=== PATIENT | female | born 1960 | race Caucasian/White ===

== ENCOUNTER 2019-11-13 10:22 | Emergency (ER) | payer BC ==
[~2019-11-13] VITALS: Ht 157.5 cm; Wt 118.8 kg
[~2019-11-13 10:22] MED LIST: COU4T PO; FURO40TA4 PO; LISI10TA4 PO; METF500T20 PO; WARF5TAB PO
[2019-11-13 10:24] VITALS: BP 156/91
== END 2019-11-13 13:06 | disposition home or self-care (01) ==
LOC: ER 10:22
DX: J06.9 Acute upper respiratory infection, unspecified (principal); Z88.0 Allergy status to penicillin; Z88.8 Allergy status to other drugs, medicaments and biological substances; Z79.899 Other long term (current) drug therapy; Z79.01 Long term (current) use of anticoagulants
CPT/HCPCS: 71045; 93005; 99283

== ENCOUNTER 2021-12-09 13:01 | Emergency (ER) | payer BC ==
[~2021-12-09] VITALS: Ht 162.6 cm; Wt 119.3 kg
[~2021-12-09 13:01] MED LIST changes: +LISI10TA27 PO; -LISI10TA4 PO; +METF-900 PO; -METF500T20 PO; -WARF5TAB PO; +WARF5TAB2 PO
[2021-12-09 13:41] LABS: BASOPHILS # (AUTO) 0.1 X10'3 (0-0.2); BASOPHILS % (AUTO) 0.9 % (0-1); EOSINOPHILS # (AUTO) 0.2 X10'3 (0-0.9); EOSINOPHILS % (AUTO) 1.5 % (0-6); HEMATOCRIT 40.5 % (35.0-45.0); HEMOGLOBIN 13.3 g/dl (12.0-16.0); LYMPHOCYTES # (AUTO) 2.1 X10'3 (1.1-4.8); MEAN CORPUSCULAR HEMOGLOBIN 30.1 PG (27.0-31.0); MEAN CORPUSCULAR HGB CONC 32.8 g/dL (33.0-36.5); MEAN CORPUSCULAR VOLUME 91.7 FL (78-98); MEAN PLATELET VOLUME 8.8 FL (7.4-10.4); MONOCYTES # (AUTO) 0.8 X10'3 (0-0.9); MONOCYTES % (AUTO) 7.3 % (2-12); NEUTROPHILS # (AUTO) 8.4 X10'3 (1.8-7.7); NEUTROPHILS % (AUTO) 72.3 % (42-75); PLATELET COUNT 271 X10'3 (140-440); RED BLOOD COUNT 4.42 X10'6 (4.20-5.60); RED CELL DISTRIBUTION WIDTH 14.5 % (11.5-14.5); WHITE BLOOD COUNT 11.6 X10'3 (4.5-11.0)
[2021-12-09 13:52] LABS: ALANINE AMINOTRANSFERASE 38 U/L (12-78); ALBUMIN 3.6 G/DL (3.4-5.0); ALKALINE PHOSPHATASE 99 IU/L (46-116); ANION GAP 11 (8-16); ASPARTATE AMINO TRANSFERASE 28 U/L (10-37); BILIRUBIN,TOTAL 0.4 MG/DL (0.1-1.0); BLOOD UREA NITROGEN 22 MG/DL (7-18); BUN/CREATININE RATIO 29.7 (6.6-38.0); CALCIUM 9.2 MG/DL (8.5-10.1); CHLORIDE 100 MMOL/L (99-107); CREATININE 0.74 MG/DL (0.40-0.90); GLUCOSE 120 MG/DL (70-104); POTASSIUM 3.2 MMOL/L (3.5-5.1); SODIUM 139 MMOL/L (135-145); TOTAL CARBON DIOXIDE 28.5 MMOL/L (24-32); TOTAL PROTEIN 7.3 G/DL (6.4-8.2); eGFR 79 ML/MIN
[2021-12-09 23:22] VITALS: BP 129/64
[2021-12-10] MEDS ORDERED: aspirin 325mg tablet PO ONE (00:05)
--- NOTE | 2021-12-10 00:19 | NUR ---
CONSULTED WITH SAKSHI AT AND HAD HER SIGN THE AMA FORM. PT DENIES PAIN. SEE MAR - PT LEFT PWD HERR AOX4 ON FOOT
== END 2021-12-10 00:21 | disposition left against medical advice (07) ==
LOC: ER 13:02
DX: R07.89 Other chest pain (principal); Z20.822 Contact with and (suspected) exposure to COVID-19; R60.0 Localized edema; Z88.0 Allergy status to penicillin; Z79.899 Other long term (current) drug therapy
CPT/HCPCS: 36415; 71045; 80053; 83880; 84484; 85025; 87635; 93005; 93971; 99285; C9803

== ENCOUNTER 2023-04-26 10:32 | Emergency (ER) | payer BC ==
[~2023-04-26] VITALS: Ht 157.5 cm; Wt 142.0 kg
[2023-04-26 11:43] LABS: BASOPHILS # (AUTO) 0.1 X10'3 (0-0.2); BASOPHILS % (AUTO) 1.2 % (0-1); EOSINOPHILS # (AUTO) 0.3 X10'3 (0-0.9); HEMATOCRIT 38.6 % (35.0-45.0); HEMOGLOBIN 12.5 g/dl (12.0-16.0); LYMPHOCYTES # (AUTO) 1.6 X10'3 (1.1-4.8); LYMPHOCYTES % (AUTO) 19.6 % (21-51); MEAN CORPUSCULAR HEMOGLOBIN 30.5 PG (27.0-31.0); MEAN CORPUSCULAR HGB CONC 32.5 g/dL (33.0-36.5); MEAN CORPUSCULAR VOLUME 93.9 FL (78-98); MEAN PLATELET VOLUME 9.5 FL (7.4-10.4); MONOCYTES # (AUTO) 0.7 X10'3 (0-0.9); MONOCYTES % (AUTO) 9.4 % (2-12); NEUTROPHILS # (AUTO) 5.2 X10'3 (1.8-7.7); NEUTROPHILS % (AUTO) 65.8 % (42-75); PLATELET COUNT 189 X10'3 (140-440); RED BLOOD COUNT 4.11 X10'6 (4.20-5.60); RED CELL DISTRIBUTION WIDTH 14.7 % (11.5-14.5); WHITE BLOOD COUNT 7.9 X10'3 (4.5-11.0)
--- NOTE | 2023-04-26 11:49 | NUR ---
PT TAKEN TO XRAY
[2023-04-26 11:50] LABS: ALANINE AMINOTRANSFERASE 38 U/L (12-78); ALBUMIN 3.1 G/DL (3.4-5.0); ALKALINE PHOSPHATASE 68 IU/L (46-116); ANION GAP 6 (8-16); ASPARTATE AMINO TRANSFERASE 29 U/L (10-37); BILIRUBIN,TOTAL 0.4 MG/DL (0.1-1.0); BLOOD UREA NITROGEN 22 MG/DL (7-18); BUN/CREATININE RATIO 34.4 (10.0-20.0); CHLORIDE 107 MMOL/L (99-107); CREATININE 0.64 MG/DL (0.40-0.90); GLUCOSE 96 MG/DL (70-104); POTASSIUM 4.3 MMOL/L (3.5-5.1); SODIUM 140 MMOL/L (135-145); TOTAL CARBON DIOXIDE 27.2 MMOL/L (24-32); TOTAL PROTEIN 6.1 G/DL (6.4-8.2); eGFR > 90 ML/MIN
[2023-04-26] MEDS ORDERED: HYDR-3965 PO ×2 (13:56→14:20)
--- NOTE | 2023-04-26 14:28 | NUR ---
PT STATED THAT [facility] IS CLOSED ON SUN AND WILL BE CLOSED ON THU D/ HOLIDAY. PT REQ PRINTED RX. PRINTED RX PROVIDED AND RN CALLED [facility] TO [facility] RX THAT WAS SENT ELECTRONICALLY.
[2023-04-26 14:39] VITALS: BP 138/75
== END 2023-04-26 15:40 | disposition home or self-care (01) ==
LOC: ER 10:33
DX: M25.552 Pain in left hip (principal); Z88.0 Allergy status to penicillin; Z88.8 Allergy status to other drugs, medicaments and biological substances; Z79.899 Other long term (current) drug therapy
CPT/HCPCS: 36415; 72192; 73502; 80053; 85025; 99284

== ENCOUNTER 2023-06-10 07:15 | Emergency (ER) | payer MEDICARE, BC ==
[~2023-06-10] VITALS: Ht 157.5 cm; Wt 140.0 kg
[2023-06-10 07:20] VITALS: BP 150/66
[2023-06-10] MEDS ORDERED: ketorolac trometh inj. 60 MG/2 ML VIAL IM ONE (10:10)
[2023-06-10] MEDS ORDERED: cyclobenzaprine 10mg tablet PO ONE (10:10)
[2023-06-10] MEDS ORDERED: LISI5TAB22 PO (20:43)
[2023-06-10] MEDS ORDERED: SOTA80TA73 PO (20:43)
[2023-06-10] MEDS ORDERED: APIX5TAB3 PO (20:43)
[2023-06-11] MEDS ORDERED: POTA-366 PO (01:03)
[2023-06-11] MEDS ORDERED: OMEP20CA16 PO (01:13)
[2023-06-11] MEDS ORDERED: CHOL500050 PO (01:13)
[2023-06-11] MEDS ORDERED: LACT1TAB11 PO (01:13)
[2023-06-11] MEDS ORDERED: METF-436 PO (01:13)
[2023-06-11] MEDS ORDERED: MULT-1085 PO (01:13)
[2023-06-11] MEDS ORDERED: SENN8.6T19 PO (01:13)
[2023-06-11] MEDS ORDERED: CALC-331 PO (01:13)
[2023-06-11] MEDS ORDERED: ATOR20TA66 PO (01:17)
== END 2023-06-10 11:01 | disposition home or self-care (01) ==
LOC: ER 07:15
DX: M25.552 Pain in left hip (principal); Z88.8 Allergy status to other drugs, medicaments and biological substances; Z88.0 Allergy status to penicillin
CPT/HCPCS: 73502; 96372; 99283; J1885

== ENCOUNTER 2023-06-10 17:49 | Inpatient (IN) | payer BC, MEDICARE ==
[~2023-06-10] VITALS: Ht 157.5 cm; Wt 118.2 kg
[2023-06-10] MEDS ORDERED: oxyCODONE/APAP 10/325mg tablet PO ONE (18:20)
[2023-06-10] MEDS ORDERED: ibuprofen tablet 400 MG TABLET PO ONE (18:30)
[2023-06-10] MEDS ORDERED: ondansetron/PF 4mg/2ml inj IV ONE (19:35)
[2023-06-10] MEDS ORDERED: morphine 4 MG/ML inj SYRINge IV ONE (19:42)
[2023-06-10 19:55] LABS: BASOPHILS # (AUTO) 0.1 X10'3 (0-0.2); BASOPHILS % (AUTO) 0.7 % (0-1); EOSINOPHILS # (AUTO) 0.2 X10'3 (0-0.9); EOSINOPHILS % (AUTO) 1.3 % (0-6); HEMATOCRIT 39.1 % (35.0-45.0); HEMOGLOBIN 12.7 g/dl (12.0-16.0); LYMPHOCYTES # (AUTO) 1.7 X10'3 (1.1-4.8); LYMPHOCYTES % (AUTO) 12.4 % (21-51); MEAN CORPUSCULAR HEMOGLOBIN 30.7 PG (27.0-31.0); MEAN CORPUSCULAR HGB CONC 32.5 g/dL (33.0-36.5); MEAN CORPUSCULAR VOLUME 94.7 FL (78-98); MEAN PLATELET VOLUME 9.1 FL (7.4-10.4); MONOCYTES # (AUTO) 1.2 X10'3 (0-0.9); NEUTROPHILS # (AUTO) 10.5 X10'3 (1.8-7.7); NEUTROPHILS % (AUTO) 76.6 % (42-75); PLATELET COUNT 203 X10'3 (140-440); RED BLOOD COUNT 4.13 X10'6 (4.20-5.60); RED CELL DISTRIBUTION WIDTH 14.6 % (11.5-14.5); WHITE BLOOD COUNT 13.6 X10'3 (4.5-11.0)
[2023-06-10 20:07] LABS: APTT 29 SECONDS (22-32)
[2023-06-10 20:09] LABS: ALANINE AMINOTRANSFERASE 31 U/L (12-78); ALBUMIN 3.5 G/DL (3.4-5.0); ALKALINE PHOSPHATASE 87 IU/L (46-116); ANION GAP 11 (8-16); ASPARTATE AMINO TRANSFERASE 24 U/L (10-37); BILIRUBIN,TOTAL 0.3 MG/DL (0.1-1.0); BLOOD UREA NITROGEN 33 MG/DL (7-18); BUN/CREATININE RATIO 35.9 (10.0-20.0); CALCIUM 9.4 MG/DL (8.5-10.1); CHLORIDE 102 MMOL/L (99-107); CREATININE 0.92 MG/DL (0.40-0.90); GLUCOSE 105 MG/DL (70-104); MAGNESIUM 2.2 MG/DL (1.5-2.4); POTASSIUM 3.7 MMOL/L (3.5-5.1); SODIUM 137 MMOL/L (135-145); TOTAL CARBON DIOXIDE 24.5 MMOL/L (24-32); TOTAL PROTEIN 6.9 G/DL (6.4-8.2); eGFR 61 ML/MIN
[2023-06-10] MEDS ORDERED: APIX5TAB3 PO (20:43)
[2023-06-10] MEDS ORDERED: LISI5TAB22 PO (20:43)
[2023-06-10] MEDS ORDERED: SOTA80TA73 PO (20:43)
[2023-06-10] MEDS ORDERED: normal saline 1000ml 1,000 ML IV SCH (20:55)
[2023-06-10 21:44] LABS: CLARITY,URINE SLIGHTLY CLOUDY (Clear); COLOR,URINE YELLOW (Yellow); GLUCOSE, URINE NEGATIVE (Neg); KETONES,URINE NEGATIVE (Neg); LEUKOCYTE ESTERASE ,URINE NEGATIVE (Neg); NITRITES, URINE NEGATIVE (Neg); OCCULT BLOOD,URINE NEGATIVE (Neg); PROTEIN,URINE NEGATIVE (Neg); UA COLLECTION TYPE FOLEY CATH; UROBILINOGEN,URINE 0.2 E.U/dL (0.2-1.0)
[2023-06-10 21:51] LABS: FINE GRANULAR CAST 0-3 /LPF (NEGATIVE); HYALINE CASTS >30 /LPF (NEGATIVE); MUCUS STRANDS MODERATE /LPF (Neg); SQUAMOUS EPITHELIAL CELL,UR MANY /LPF (FEW)
[2023-06-10 21:52] LABS: BACTERIA,URINE FEW /HPF (Neg); TRANSITIONAL EPI CELLS,URINE FEW /HPF; WBC,URINE 0-4 /HPF (0-4)
[2023-06-10] MEDS ORDERED: morphine 2 MG/ML inj. syringe IV PRN ×2 (21:55)
[2023-06-10] MEDS ORDERED: potassium Cl 20 mEq SR tablet PO PRN ×2 (21:55)
[2023-06-10] MEDS ORDERED: mag hydrox/Alum hydrox/simeth 30ml oral suspension PO PRN (21:55)
[2023-06-10] MEDS ORDERED: potassium Cl 40MEQ/1/2NS 520ml 520 ML IV PRN (21:55)
[2023-06-10] MEDS ORDERED: acetaminophen 325mg tablet PO PRN (21:55)
[2023-06-10] MEDS ORDERED: magnesium 4gm in 100ml NS 100 ML IV PRN (21:55)
[2023-06-10] MEDS ORDERED: magnesium hydroxide 30ml (MOM) UD suspension PO PRN (21:55)
[2023-06-10] MEDS ORDERED: magnesium Cl slow-release 64mg tablet PO PRN (21:55)
[2023-06-10] MEDS ORDERED: heparin, porcine 5000 units/ml vial SQ ONE (21:55)
[2023-06-10] MEDS ORDERED: magnesium 2GM in 50ml NS 50 ML IV PRN (21:55)
[2023-06-10] MEDS ORDERED: ondansetron/PF 4mg/2ml inj IV PRN (21:55)
[2023-06-10] MEDS: normal saline 1000ml 1,000 ML IV SCH (22:14)
[2023-06-10] MEDS ORDERED: sotalol 80mg tablet PO SCH (22:30)
[2023-06-11] VITALS (15 sets, daily range): BP systolic 103–161; BP diastolic 43–88
[2023-06-11] MEDS ORDERED: morphine 2 MG/ML inj. syringe IV PRN ×3 (00:50→12:50)
[2023-06-11] MEDS: morphine 2 MG/ML inj. syringe IV PRN ×4 (01:00→08:18)
[2023-06-11] MEDS ORDERED: POTA-366 PO (01:03)
[2023-06-11] MEDS ORDERED: MULT-1085 PO (01:13)
[2023-06-11] MEDS ORDERED: SENN8.6T19 PO (01:13)
[2023-06-11] MEDS ORDERED: CHOL500050 PO (01:13)
[2023-06-11] MEDS ORDERED: OMEP20CA16 PO (01:13)
[2023-06-11] MEDS ORDERED: LACT1TAB11 PO (01:13)
[2023-06-11] MEDS ORDERED: CALC-331 PO (01:13)
[2023-06-11] MEDS ORDERED: METF-436 PO (01:13)
[2023-06-11] MEDS ORDERED: ATOR20TA66 PO (01:17)
[2023-06-11 01:49] LABS: BASOPHILS # (AUTO) 0.1 X10'3 (0-0.2); BASOPHILS % (AUTO) 0.7 % (0-1); EOSINOPHILS # (AUTO) 0.2 X10'3 (0-0.9); EOSINOPHILS % (AUTO) 1.9 % (0-6); HEMATOCRIT 35.7 % (35.0-45.0); HEMOGLOBIN 11.7 g/dl (12.0-16.0); LYMPHOCYTES # (AUTO) 2.2 X10'3 (1.1-4.8); LYMPHOCYTES % (AUTO) 20.6 % (21-51); MEAN CORPUSCULAR HEMOGLOBIN 30.9 PG (27.0-31.0); MEAN CORPUSCULAR HGB CONC 32.9 g/dL (33.0-36.5); MEAN CORPUSCULAR VOLUME 94.1 FL (78-98); MEAN PLATELET VOLUME 8.9 FL (7.4-10.4); MONOCYTES % (AUTO) 9.4 % (2-12); NEUTROPHILS # (AUTO) 7.2 X10'3 (1.8-7.7); NEUTROPHILS % (AUTO) 67.4 % (42-75); PLATELET COUNT 177 X10'3 (140-440); RED BLOOD COUNT 3.79 X10'6 (4.20-5.60); RED CELL DISTRIBUTION WIDTH 14.5 % (11.5-14.5); WHITE BLOOD COUNT 10.8 X10'3 (4.5-11.0)
[2023-06-11 02:00] LABS: ALANINE AMINOTRANSFERASE 32 U/L (12-78); ALBUMIN 3.1 G/DL (3.4-5.0); ALKALINE PHOSPHATASE 70 IU/L (46-116); ANION GAP 9 (8-16); ASPARTATE AMINO TRANSFERASE 20 U/L (10-37); BILIRUBIN,TOTAL 0.4 MG/DL (0.1-1.0); BLOOD UREA NITROGEN 27 MG/DL (7-18); CALCIUM 8.8 MG/DL (8.5-10.1); CHLORIDE 105 MMOL/L (99-107); CREATININE 0.75 MG/DL (0.40-0.90); GLUCOSE 98 MG/DL (70-104); MAGNESIUM 2.2 MG/DL (1.5-2.4); POTASSIUM 3.7 MMOL/L (3.5-5.1); SODIUM 139 MMOL/L (135-145); TOTAL CARBON DIOXIDE 24.9 MMOL/L (24-32); TOTAL PROTEIN 6.1 G/DL (6.4-8.2); eGFR 78 ML/MIN
[2023-06-11] MEDS: pantoprazole 40mg Tablet.DR PO SCH (07:30)
[2023-06-11] MEDS: K and/or MAG REPLACEMENT MC SCH ×2 (08:00→19:36)
[2023-06-11] MEDS: docusate sod 100mg capsule PO SCH ×2 (08:00→20:03)
[2023-06-11] MEDS: sotalol HCl 40mg (1/2 tablet) PO SCH ×2 (08:00→21:22)
--- NOTE | 2023-06-11 09:09 | NUR ---
RN PAGED DR CHAVEZ TO NOTIFY THAT MORPHINE 2MG NOT EFFECTIVE AND TO REQ DIALUDID.
--- NOTE | 2023-06-11 09:59 | NUR ---
RN CALLED OR AND SPOKE WITH BRE MIRAMONTES CASING SEWER AND NOTIFIED HER THAT PT TOOK ELIQUIS YESTERDAY AND HEPARIN WAS ADMIN 06/10 AT 2235. PER BRE ORD COAG LABS UNDER MILES. ORD PLACED.
--- NOTE | 2023-06-11 10:27 | NUR ---
RN PAGED DR CHAVEZ TO CALL ED BACK SO STRONGER PAIN MED/MORE PAIN MED MAY BE ORD. PT STATES THAT PAIN TO LEFT HIP IS STILL 10/10 AFTER 2 MG MORPHINE.
--- NOTE | 2023-06-11 10:42 | NUR ---
DR CHAVEZ RTN RN CALL AND ORD TO CHG MORPHINE FROM 2MG TO 3MG Q 4 HRS AND RN MAY ADMIN ADDITIONAL 1MG OF MORPHINE NOW. Addendum: 06/11/23 at 1044 by RUSLAN CORRECTION TO PREVIOUS NOTE. PER DR CHAVEZ CHG 2MG MORPHINE Q 4HRS TO Q 2HRS.
[2023-06-11 10:45] LABS: BASOPHILS % (AUTO) 0.5 % (0-1); EOSINOPHILS # (AUTO) 0.2 X10'3 (0-0.9); EOSINOPHILS % (AUTO) 2.3 % (0-6); HEMATOCRIT 36.7 % (35.0-45.0); LYMPHOCYTES # (AUTO) 1.5 X10'3 (1.1-4.8); MEAN CORPUSCULAR HGB CONC 32.6 g/dL (33.0-36.5); MEAN CORPUSCULAR VOLUME 95.1 FL (78-98); MEAN PLATELET VOLUME 9.2 FL (7.4-10.4); MONOCYTES % (AUTO) 10.8 % (2-12); NEUTROPHILS # (AUTO) 6.7 X10'3 (1.8-7.7); NEUTROPHILS % (AUTO) 70.4 % (42-75); PLATELET COUNT 175 X10'3 (140-440); RED BLOOD COUNT 3.86 X10'6 (4.20-5.60); RED CELL DISTRIBUTION WIDTH 15.1 % (11.5-14.5); WHITE BLOOD COUNT 9.5 X10'3 (4.5-11.0)
--- NOTE | 2023-06-11 11:10 | NUR ---
PT/PTT/INR COLLECTED BY LAB AND SENT RIGHT AWAY FOR PT SURGERY.
[2023-06-11 11:42] LABS: APTT 28 SECONDS (22-32)
--- NOTE | 2023-06-11 12:33 | NUR ---
PT TAKEN TO OR. PT BELONGINGS SENT WITH HER.
[2023-06-11] MEDS ORDERED: proCHLORperazine 10 MG/2 ml inj IV PRN (12:50)
[2023-06-11] MEDS ORDERED: meperidine/PF 25mg/ml syringe IV PRN ×2 (12:50)
[2023-06-11] MEDS ORDERED: morphine 4 MG/ML inj SYRINge IV PRN (12:50)
[2023-06-11] MEDS ORDERED: ondansetron/PF 4mg/2ml inj IV PRN (12:50)
[2023-06-11] MEDS ORDERED: ringers solution, lacted 1,000 ML IV SCH (12:50)
[2023-06-11] MEDS ORDERED: sevoflurane 250ml liquid IH ONE (12:54)
[2023-06-11] MEDS ORDERED: fentaNYL/PF 50MCG/1 ML 2ML syringe ONE (13:03)
[2023-06-11] MEDS ORDERED: midazolam 1 mg/ML 2ml injection ONE (13:03)
[2023-06-11] MEDS ORDERED: ceFAZolin 1000mg inj ONE ×3 (13:15)
[2023-06-11] MEDS ORDERED: propofol inj 20 ML IV ONE (13:16)
[2023-06-11] MEDS ORDERED: ROPIVAcaine 0.5% (5mg/ml) 30ml vial ONE (13:33)
--- NOTE | 2023-06-11 13:46 | NUR ---
Received from OR via HOSPITAL BED TO RR 8, accompanied by Anesthesiologist DR FORTE and report given by Anesthesiolgist. PT PRESENTS WITH PIV 20G LEFT HAND, SPO2 98 10L MASK W/ ORAL AIRWAY, LEFT HIP DRESSING CDI,;R RUNNING AT 100MLS/HR, VSS. Addendum: 06/11/23 at 1400 by Danielle Schmidt RN, RN Amended: Links added.
--- NOTE | 2023-06-11 13:50 | NUR ---
ORAL AIRWAY REMOVED, PT TOLERATED WELL. Addendum: 06/11/23 at 1403 by Danielle Schmidt RN RN Amended: Links added.
[2023-06-11] MEDS: meperidine/PF 25mg/ml syringe IV PRN ×2 (14:16→14:51)
[2023-06-11] MEDS: normal saline 1000ml 1,000 ML IV SCH (14:35)
--- NOTE | 2023-06-11 15:06 | NUR ---
Report called to receiving nurse KALEIGH MIRAMONTES. Transferred via HOSPITAL BED TO ROOM 4013B. BED IN LOW LOCKED POSITION WITH CALL LIGHT IN REACH, PT HOOKED UP TO BEDSIDE MONITOR. CHART TAKEN TO NURSES STATION. Belongings TAKEN TO ROOM WITH PT. Special Issues communicated to receiving nurse. Addendum: 06/11/23 at 1515 by Danielle Schmidt RN, RN Amended: Links added.
--- NOTE | 2023-06-11 15:22 | NUR ---
Received report from Rylee in recovery for pt. Assuming care of pt. Called Dr Santos and he said pt doesn't need tranexamic for postop since EBL is 10.
[2023-06-11] MEDS ORDERED: ceFAZolin/D5W- 1GM premix 50 ML IV SCH (16:00)
[2023-06-11] MEDS: HYDROcodone/acetaminophen 10/325mg tab PO PRN ×3 (17:35→21:44)
--- NOTE | 2023-06-11 18:30 | NUR ---
Patient in room ORTHO 4013. I have received report from FE Corbett and had the opportunity to ask questions and assume patient care.
--- NOTE | 2023-06-11 18:30 | NUR ---
Patient in room ORTHO 4013. I have received report from FE Corbett and had the opportunity to ask questions and assume patient care.
--- NOTE | 2023-06-11 18:41 | NUR ---
Problems reprioritized. Patient report given, questions answered & plan of care reviewed with Bety MIRAMONTES.
[2023-06-11] MEDS: ceFAZolin inj. 3,000 MG in normal saline 100ml IV soln 100 ML IV SCH (20:02)
[2023-06-11] MEDS: enoxaparin 60mg/0.6ml syringe SUBCUT SCH (21:07)
[2023-06-12 01:46] VITALS: BP 115/53
[2023-06-12] MEDS: ceFAZolin inj. 3,000 MG in normal saline 100ml IV soln 100 ML IV SCH (02:45)
[2023-06-12] MEDS: HYDROcodone/acetaminophen 10/325mg tab PO PRN ×5 (02:59→20:16)
[2023-06-12 06:00] VITALS: BP 112/59
--- NOTE | 2023-06-12 06:25 | NUR ---
Problems reprioritized. Patient report given, questions answered & plan of care reviewed with FE Le.
--- NOTE | 2023-06-12 06:31 | NUR ---
Patient in room ORTHO 4013. I have received report from Linda & Bety and had the opportunity to ask questions and assume patient care.
[2023-06-12] MEDS: K and/or MAG REPLACEMENT MC SCH ×2 (06:36→19:50)
[2023-06-12] MEDS: sotalol HCl 40mg (1/2 tablet) PO SCH ×3 (07:02→20:14)
[2023-06-12] MEDS: pantoprazole 40mg Tablet.DR PO SCH (07:02)
[2023-06-12] MEDS: docusate sod 100mg capsule PO SCH ×2 (07:02→20:14)
[2023-06-12] MEDS: normal saline 1000ml 1,000 ML IV SCH (07:15)
[2023-06-12 07:37] LABS: BASOPHILS # (AUTO) 0.1 X10'3 (0-0.2); BASOPHILS % (AUTO) 0.6 % (0-1); EOSINOPHILS # (AUTO) 0.2 X10'3 (0-0.9); EOSINOPHILS % (AUTO) 2.1 % (0-6); HEMATOCRIT 33.8 % (35.0-45.0); HEMOGLOBIN 11.3 g/dl (12.0-16.0); LYMPHOCYTES # (AUTO) 1.5 X10'3 (1.1-4.8); LYMPHOCYTES % (AUTO) 16.6 % (21-51); MEAN CORPUSCULAR HEMOGLOBIN 31.9 PG (27.0-31.0); MEAN CORPUSCULAR HGB CONC 33.4 g/dL (33.0-36.5); MEAN CORPUSCULAR VOLUME 95.4 FL (78-98); MEAN PLATELET VOLUME 9.5 FL (7.4-10.4); MONOCYTES % (AUTO) 11.3 % (2-12); NEUTROPHILS # (AUTO) 6.3 X10'3 (1.8-7.7); NEUTROPHILS % (AUTO) 69.4 % (42-75); PLATELET COUNT 159 X10'3 (140-440); RED BLOOD COUNT 3.54 X10'6 (4.20-5.60); RED CELL DISTRIBUTION WIDTH 14.6 % (11.5-14.5); WHITE BLOOD COUNT 9.1 X10'3 (4.5-11.0)
[2023-06-12 07:52] LABS: ALANINE AMINOTRANSFERASE 21 U/L (12-78); ALBUMIN 2.6 G/DL (3.4-5.0); ALBUMIN/GLOBULIN RATIO 0.8 (1.1-1.5); ALKALINE PHOSPHATASE 67 IU/L (46-116); ANION GAP 8 (8-16); ASPARTATE AMINO TRANSFERASE 19 U/L (10-37); BILIRUBIN,TOTAL 0.2 MG/DL (0.1-1.0); BLOOD UREA NITROGEN 15 MG/DL (7-18); CALCIUM 8.1 MG/DL (8.5-10.1); CHLORIDE 107 MMOL/L (99-107); GLUCOSE 93 MG/DL (70-104); MAGNESIUM 2.2 MG/DL (1.5-2.4); SODIUM 139 MMOL/L (135-145); TOTAL CARBON DIOXIDE 24.4 MMOL/L (24-32); TOTAL PROTEIN 5.7 G/DL (6.4-8.2); eGFR > 90 ML/MIN
[2023-06-12 08:19] LABS: % IRON SATURATION 12 % (11-46); IRON 24 UG/DL (49-151); TOTAL IRON BINDING CAPACITY 206 UG/DL (259-388)
[2023-06-12 10:00] VITALS: BP 122/55
[2023-06-12 11:20] LABS: FERRITIN 345 NG/ML (8-252)
[2023-06-12] MEDS ORDERED: ondansetron 4mg rapidly disintigrating tab PO PRN (13:30)
[2023-06-12 14:00] VITALS: BP 123/56
[2023-06-12 18:00] VITALS: BP 128/43
--- NOTE | 2023-06-12 18:10 | NUR ---
Patient in room ORTHO 4013. I have received report from FE Le and had the opportunity to ask questions and assume patient care.
--- NOTE | 2023-06-12 18:30 | NUR ---
Patient in room ORTHO 4013. I have received report from FE Le and had the opportunity to ask questions and assume patient care.
--- NOTE | 2023-06-12 18:48 | NUR ---
Problems reprioritized. Patient report given, questions answered & plan of care reviewed with Batsheva.
[2023-06-12] MEDS: enoxaparin 60mg/0.6ml syringe SUBCUT SCH (20:15)
[2023-06-12 22:00] VITALS: BP 119/87
[2023-06-13] MEDS: HYDROcodone/acetaminophen 10/325mg tab PO PRN ×5 (00:13→21:07)
[2023-06-13] MEDS: normal saline 1000ml 1,000 ML IV SCH (00:25)
[2023-06-13 05:00] VITALS: BP 126/70
--- NOTE | 2023-06-13 06:35 | NUR ---
Patient in room ORTHO 4013. I have received report from Linda & Bety and had the opportunity to ask questions and assume patient care.
--- NOTE | 2023-06-13 06:58 | NUR ---
Problems reprioritized. Patient report given, questions answered & plan of care reviewed with FE Le.
[2023-06-13 07:06] LABS: BASOPHILS % (AUTO) 0.5 % (0-1); EOSINOPHILS # (AUTO) 0.3 X10'3 (0-0.9); EOSINOPHILS % (AUTO) 3.1 % (0-6); HEMATOCRIT 34.8 % (35.0-45.0); HEMOGLOBIN 11.6 g/dl (12.0-16.0); LYMPHOCYTES # (AUTO) 1.9 X10'3 (1.1-4.8); LYMPHOCYTES % (AUTO) 19.8 % (21-51); MEAN CORPUSCULAR HEMOGLOBIN 31.5 PG (27.0-31.0); MEAN CORPUSCULAR HGB CONC 33.3 g/dL (33.0-36.5); MEAN CORPUSCULAR VOLUME 94.8 FL (78-98); MEAN PLATELET VOLUME 9.1 FL (7.4-10.4); MONOCYTES # (AUTO) 1.1 X10'3 (0-0.9); MONOCYTES % (AUTO) 11.6 % (2-12); NEUTROPHILS # (AUTO) 6.2 X10'3 (1.8-7.7); PLATELET COUNT 160 X10'3 (140-440); RED BLOOD COUNT 3.67 X10'6 (4.20-5.60); RED CELL DISTRIBUTION WIDTH 14.7 % (11.5-14.5); WHITE BLOOD COUNT 9.5 X10'3 (4.5-11.0)
[2023-06-13] MEDS: K and/or MAG REPLACEMENT MC SCH ×2 (07:12→20:00)
[2023-06-13 07:29] LABS: ALANINE AMINOTRANSFERASE 19 U/L (12-78); ALBUMIN 2.6 G/DL (3.4-5.0); ALBUMIN/GLOBULIN RATIO 0.8 (1.1-1.5); ALKALINE PHOSPHATASE 75 IU/L (46-116); ANION GAP 9 (8-16); ASPARTATE AMINO TRANSFERASE 21 U/L (10-37); BILIRUBIN,TOTAL 0.3 MG/DL (0.1-1.0); BLOOD UREA NITROGEN 16 MG/DL (7-18); BUN/CREATININE RATIO 26.2 (10.0-20.0); CALCIUM 8.6 MG/DL (8.5-10.1); CHLORIDE 105 MMOL/L (99-107); CREATININE 0.61 MG/DL (0.40-0.90); GLUCOSE 100 MG/DL (70-104); MAGNESIUM 2.5 MG/DL (1.5-2.4); POTASSIUM 4.6 MMOL/L (3.5-5.1); SODIUM 138 MMOL/L (135-145); TOTAL CARBON DIOXIDE 24.5 MMOL/L (24-32); eGFR > 90 ML/MIN
[2023-06-13] MEDS: sotalol HCl 40mg (1/2 tablet) PO SCH ×2 (08:00→20:00)
[2023-06-13] MEDS: pantoprazole 40mg Tablet.DR PO SCH (08:17)
[2023-06-13] MEDS: furosemide 40mg tablet PO SCH ×2 (08:17→20:00)
[2023-06-13] MEDS: docusate sod 100mg capsule PO SCH ×2 (08:17→21:03)
[2023-06-13 10:00] VITALS: BP 130/44
[2023-06-13] MEDS ORDERED: sennosides 8.6mg tablet PO PRN (15:25)
--- NOTE | 2023-06-13 15:50 | NUR ---
SW pt extensively regarding pt needing to have a bowel movement. Pt feels like she is going to have one soon and is refusing any medications to initiate one. Explained the risks of not following a bowel regimine and pt does not want anything at this time.
[2023-06-13] MEDS: calcium carbonate 500mg tablet PO SCH (17:41)
[2023-06-13 18:00] VITALS: BP 114/66
--- NOTE | 2023-06-13 18:22 | NUR ---
Problems reprioritized. Patient report given, questions answered & plan of care reviewed with Batsheva.
--- NOTE | 2023-06-13 18:30 | NUR ---
Patient in room ORTHO 4013. I have received report from FE Le and had the opportunity to ask questions and assume patient care.
--- NOTE | 2023-06-13 18:55 | NUR ---
Ask Dr. Santos for ASA ,he said as long as pt in Eliquis 5mg BID she does not need ASA.
[2023-06-13] MEDS: apixaban 5mg tablet PO SCH (21:03)
[2023-06-13 22:00] VITALS: BP 123/56
[2023-06-14] MEDS: HYDROcodone/acetaminophen 10/325mg tab PO PRN ×4 (03:52→21:25)
[2023-06-14 06:00] VITALS: BP 102/45
--- NOTE | 2023-06-14 06:13 | NUR ---
Problems reprioritized. Patient report given, questions answered & plan of care reviewed with FE Parry.
--- NOTE | 2023-06-14 06:42 | NUR ---
Patient in room ORTHO 4013. I have received report from YOVANA MIRAMONTES and had the opportunity to ask questions and assume patient care.
[2023-06-14 07:47] LABS: ALANINE AMINOTRANSFERASE 17 U/L (12-78); ALBUMIN 2.6 G/DL (3.4-5.0); ALBUMIN/GLOBULIN RATIO 0.7 (1.1-1.5); ALKALINE PHOSPHATASE 77 IU/L (46-116); ANION GAP 9 (8-16); ASPARTATE AMINO TRANSFERASE 20 U/L (10-37); BILIRUBIN,TOTAL 0.3 MG/DL (0.1-1.0); BLOOD UREA NITROGEN 17 MG/DL (7-18); BUN/CREATININE RATIO 27.9 (10.0-20.0); CALCIUM 8.6 MG/DL (8.5-10.1); CHLORIDE 104 MMOL/L (99-107); CREATININE 0.61 MG/DL (0.40-0.90); GLUCOSE 100 MG/DL (70-104); MAGNESIUM 2.2 MG/DL (1.5-2.4); POTASSIUM 4.2 MMOL/L (3.5-5.1); SODIUM 140 MMOL/L (135-145); TOTAL CARBON DIOXIDE 27.1 MMOL/L (24-32); TOTAL PROTEIN 6.1 G/DL (6.4-8.2); eGFR > 90 ML/MIN
[2023-06-14 07:52] LABS: BASOPHILS # (AUTO) 0.1 X10'3 (0-0.2); BASOPHILS % (AUTO) 0.5 % (0-1); EOSINOPHILS # (AUTO) 0.3 X10'3 (0-0.9); EOSINOPHILS % (AUTO) 2.7 % (0-6); HEMOGLOBIN 11.8 g/dl (12.0-16.0); LYMPHOCYTES # (AUTO) 1.3 X10'3 (1.1-4.8); MEAN CORPUSCULAR HGB CONC 32.8 g/dL (33.0-36.5); MEAN CORPUSCULAR VOLUME 94.4 FL (78-98); MEAN PLATELET VOLUME 9.4 FL (7.4-10.4); MONOCYTES # (AUTO) 0.9 X10'3 (0-0.9); MONOCYTES % (AUTO) 10.1 % (2-12); NEUTROPHILS # (AUTO) 6.8 X10'3 (1.8-7.7); NEUTROPHILS % (AUTO) 72.7 % (42-75); PLATELET COUNT 177 X10'3 (140-440); RED BLOOD COUNT 3.82 X10'6 (4.20-5.60); RED CELL DISTRIBUTION WIDTH 14.4 % (11.5-14.5); WHITE BLOOD COUNT 9.3 X10'3 (4.5-11.0)
[2023-06-14] MEDS: K and/or MAG REPLACEMENT MC SCH ×2 (08:00→20:00)
[2023-06-14] MEDS: metFORMIN 500mg tablet PO SCH (08:03)
[2023-06-14] MEDS: calcium carbonate 500mg tablet PO SCH ×3 (08:03→17:23)
[2023-06-14] MEDS: apixaban 5mg tablet PO SCH ×2 (08:03→20:10)
[2023-06-14] MEDS: cholecalciferol (vitamin D3) 1,000 unit (25mcg) tablet PO SCH (08:03)
[2023-06-14] MEDS: atorvastatin 20mg tablet PO SCH (08:03)
[2023-06-14] MEDS: docusate sod 100mg capsule PO SCH ×2 (08:04→20:00)
[2023-06-14] MEDS: lactobacillus rhamnosus 10,000 MMU CELLS/CAPSULE PO SCH (08:04)
[2023-06-14] MEDS: lisinopril 5mg tablet PO SCH (08:06)
[2023-06-14 08:11] VITALS: BP 142/77
[2023-06-14] MEDS: sotalol HCl 40mg (1/2 tablet) PO SCH ×2 (08:11→20:10)
[2023-06-14] MEDS: multivitamins, therapeutics tablet PO SCH (08:11)
[2023-06-14] MEDS: pantoprazole 40mg Tablet.DR PO SCH (08:11)
[2023-06-14] MEDS: potassium Cl 20 mEq SR tablet PO SCH (08:11)
[2023-06-14] MEDS: furosemide 40mg tablet PO SCH ×2 (08:12→20:00)
[2023-06-14 10:00] VITALS: BP 152/78
--- NOTE | 2023-06-14 14:00 | NUR ---
PER DR HIGGINBOTHAM PT IS OK TO TAKE A SHOWER TODAY
[2023-06-14 18:00] VITALS: BP 116/53
--- NOTE | 2023-06-14 18:37 | NUR ---
Problems reprioritized. Patient report given, questions answered & plan of care reviewed with RACHEL MIRAMONTES.
[2023-06-14 22:00] VITALS: BP 114/70
[2023-06-15] MEDS: HYDROcodone/acetaminophen 10/325mg tab PO PRN ×4 (02:23→19:05)
[2023-06-15 06:00] VITALS: BP 120/75
--- NOTE | 2023-06-15 06:15 | NUR ---
Problems reprioritized. Patient report given, questions answered & plan of care reviewed with FE HANKINS.
[2023-06-15] MEDS: cholecalciferol (vitamin D3) 1,000 unit (25mcg) tablet PO SCH (07:48)
[2023-06-15] MEDS: atorvastatin 20mg tablet PO SCH (07:49)
[2023-06-15] MEDS: furosemide 40mg tablet PO SCH ×2 (07:49→19:02)
[2023-06-15] MEDS: apixaban 5mg tablet PO SCH ×2 (07:49→19:02)
[2023-06-15] MEDS: calcium carbonate 500mg tablet PO SCH ×3 (07:49→19:04)
[2023-06-15] MEDS: docusate sod 100mg capsule PO SCH ×2 (07:49→19:02)
[2023-06-15] MEDS: potassium Cl 20 mEq SR tablet PO SCH (07:49)
[2023-06-15] MEDS: lactobacillus rhamnosus 10,000 MMU CELLS/CAPSULE PO SCH (07:49)
[2023-06-15] MEDS: multivitamins, therapeutics tablet PO SCH (07:49)
[2023-06-15] MEDS: metFORMIN 500mg tablet PO SCH (07:50)
[2023-06-15] MEDS: pantoprazole 40mg Tablet.DR PO SCH (07:50)
[2023-06-15] MEDS: lisinopril 5mg tablet PO SCH (07:53)
[2023-06-15] MEDS: sotalol HCl 40mg (1/2 tablet) PO SCH ×2 (07:54→19:03)
[2023-06-15] MEDS: K and/or MAG REPLACEMENT MC SCH ×2 (08:00→20:00)
[2023-06-15 10:00] VITALS: BP 104/59
--- NOTE | 2023-06-15 15:21 | NUR ---
Initial: Pt admit for left hip pain secondary to left femoral neck fracture s/p left hip percutaneous pinning day 2 per EMR. Currently on a regular diet with average PO intake of 96%x 12 meals meeting estimated needs. LBM on 06/14 with routine bowel care. Will continue to monitor. Recommendations: 1.continue regular diet 2.bowel care per physician 3.weekly wts Addendum: 06/15/23 at [address] Amended: Links added. Addendum: 06/15/23 at [address] AQUILINO has reviewed and approves of above note.
[2023-06-15 18:00] VITALS: BP 125/75
--- NOTE | 2023-06-15 18:26 | NUR ---
Problems reprioritized. Patient report given, questions answered & plan of care reviewed with RACHEL MIRAMONTES.
[2023-06-15 22:00] VITALS: BP 110/45
[2023-06-16] MEDS: HYDROcodone/acetaminophen 10/325mg tab PO PRN ×4 (00:59→14:37)
[2023-06-16 06:00] VITALS: BP 142/77
--- NOTE | 2023-06-16 06:40 | NUR ---
Patient in room ORTHO 4013. I have received report from Nayeli MIRAMONTES and had the opportunity to ask questions and assume patient care.
--- NOTE | 2023-06-16 06:54 | NUR ---
Problems reprioritized. Patient report given, questions answered & plan of care reviewed with lia ng.
[2023-06-16] MEDS: K and/or MAG REPLACEMENT MC SCH (08:00)
[2023-06-16] MEDS: atorvastatin 20mg tablet PO SCH (08:46)
[2023-06-16] MEDS: apixaban 5mg tablet PO SCH (08:46)
[2023-06-16] MEDS: multivitamins, therapeutics tablet PO SCH (08:46)
[2023-06-16] MEDS: calcium carbonate 500mg tablet PO SCH ×2 (08:46→14:36)
[2023-06-16] MEDS: lactobacillus rhamnosus 10,000 MMU CELLS/CAPSULE PO SCH (08:46)
[2023-06-16] MEDS: furosemide 40mg tablet PO SCH (08:46)
[2023-06-16] MEDS: docusate sod 100mg capsule PO SCH (08:46)
[2023-06-16] MEDS: potassium Cl 20 mEq SR tablet PO SCH (08:46)
[2023-06-16] MEDS: sotalol HCl 40mg (1/2 tablet) PO SCH (08:47)
[2023-06-16] MEDS: lisinopril 5mg tablet PO SCH (08:47)
[2023-06-16] MEDS: cholecalciferol (vitamin D3) 1,000 unit (25mcg) tablet PO SCH (08:47)
[2023-06-16 10:00] VITALS: BP 136/63
[2023-06-16 10:17] LABS: BASOPHILS # (AUTO) 0.1 X10'3 (0-0.2); BASOPHILS % (AUTO) 1.1 % (0-1); EOSINOPHILS # (AUTO) 0.3 X10'3 (0-0.9); EOSINOPHILS % (AUTO) 3.5 % (0-6); HEMATOCRIT 39.5 % (35.0-45.0); HEMOGLOBIN 12.8 g/dl (12.0-16.0); LYMPHOCYTES # (AUTO) 1.6 X10'3 (1.1-4.8); LYMPHOCYTES % (AUTO) 17.6 % (21-51); MEAN CORPUSCULAR HEMOGLOBIN 30.7 PG (27.0-31.0); MEAN CORPUSCULAR HGB CONC 32.4 g/dL (33.0-36.5); MEAN CORPUSCULAR VOLUME 94.8 FL (78-98); MEAN PLATELET VOLUME 9.1 FL (7.4-10.4); MONOCYTES # (AUTO) 0.9 X10'3 (0-0.9); MONOCYTES % (AUTO) 9.8 % (2-12); NEUTROPHILS # (AUTO) 6.3 X10'3 (1.8-7.7); PLATELET COUNT 243 X10'3 (140-440); RED BLOOD COUNT 4.17 X10'6 (4.20-5.60); RED CELL DISTRIBUTION WIDTH 14.3 % (11.5-14.5); WHITE BLOOD COUNT 9.2 X10'3 (4.5-11.0)
[2023-06-16 10:28] LABS: ALBUMIN 2.9 G/DL (3.4-5.0); ANION GAP 7 (8-16); BLOOD UREA NITROGEN 23 MG/DL (7-18); BUN/CREATININE RATIO 35.4 (10.0-20.0); CALCIUM 9.8 MG/DL (8.5-10.1); CHLORIDE 102 MMOL/L (99-107); CREATININE 0.65 MG/DL (0.40-0.90); GLUCOSE 84 MG/DL (70-104); POTASSIUM 4.6 MMOL/L (3.5-5.1); SODIUM 136 MMOL/L (135-145); TOTAL CARBON DIOXIDE 27.2 MMOL/L (24-32); eGFR > 90 ML/MIN
[2023-06-16] MEDS: pantoprazole 40mg Tablet.DR PO SCH (10:47)
[2023-06-16] MEDS: ferrous sulfate 325mg tablet PO SCH ×2 (10:47→12:30)
[2023-06-16] MEDS: metFORMIN 500mg tablet PO SCH (10:47)
--- NOTE | 2023-06-16 14:15 | NUR ---
Patient discharged to [facility] today and called report to Bety MIRAMONTES. Patient IV removed by RN. All patient belongings were gathered and sent with patient. Patient alert and appropriate for transfer. Patient was picked up by [employer] personnel and loaded into [employer] vehicle.
[2023-06-16] MEDS ORDERED: furosemide 40mg tablet PO ONE (15:48)
--- NOTE | 2023-06-16 16:00 | NUR ---
I have reviewed and agree with interventions, assessments, and documentation by June May LVN.
== END 2023-06-16 16:30 | DRG 481 ==
LOC: ER 17:50 → ED HOLD 21:56 → ORTHO 4S 06-11 15:20 → UNDODISIN 06-14 13:56
PROVIDERS: ADMIT Internal Medicine; ATTEND Internal Medicine
PROC: 0QH734Z Insertion of Internal Fixation Device into Left Upper Femur, Percutaneous Approach (ICD-10-PCS; principal; 2023-06-11 12:54)
DX: S72.092A Other fracture of head and neck of left femur, initial encounter for closed fracture (principal); D68.59 Other primary thrombophilia; E11.9 Type 2 diabetes mellitus without complications; W18.39XA Other fall on same level, initial encounter; Z20.822 Contact with and (suspected) exposure to COVID-19; I48.91 Unspecified atrial fibrillation; Z79.01 Long term (current) use of anticoagulants; Z79.82 Long term (current) use of aspirin; Z88.0 Allergy status to penicillin; Z88.8 Allergy status to other drugs, medicaments and biological substances; Y93.89 Activity, other specified; Y92.89 Other specified places as the place of occurrence of the external cause; Y99.8 Other external cause status
CPT/HCPCS: 93306; 96372; 99283; 99285; Z7506; 36415; 71045; 72192; 73501; 73502; 76000; 80048; 80053; 81001; 82607; 82728; 83540; 83550; 83735; 83970; 84132; 85025; 85610; 85730; 87811; 93005; 97110; 97116; 97161; 97530; A4314; A4615; A4618; A6222; A6258; A7000; C1713; G0378; J0690; J1644; J1650; J1885; J2175; J2250; J2270; J2405; J2704; J2795; J3010; J3490; J7030; J7120

== ENCOUNTER 2024-04-17 20:32 | Emergency (ER) | payer BC, MEDICARE ==
[~2024-04-17] VITALS: Ht 157.5 cm; Wt 122.0 kg
[~2024-04-17 20:32] MED LIST changes: +APIX5TAB3 PO; +ATOR20TA66 PO; +CALC-331 PO; +CHOL500050 PO; -COU4T PO; +LACT1TAB11 PO; -LISI10TA27 PO; +LISI5TAB22 PO; +METF-436 PO; -METF-900 PO; +MULT-1085 PO; +OMEP20CA16 PO; +POTA-366 PO; +SENN8.6T19 PO; +SOTA80TA73 PO; -WARF5TAB2 PO
[2024-04-18 01:08] VITALS: BP 136/67; PULSE 61; RESP 16; TEMP 98.1; O2SAT 99
== END 2024-04-18 01:10 | disposition home or self-care (01) ==
LOC: ER 20:32
DX: S52.591A Other fractures of lower end of right radius, initial encounter for closed fracture (principal); S62.001A Unspecified fracture of navicular [scaphoid] bone of right wrist, initial encounter for closed fracture; Z88.0 Allergy status to penicillin; Z88.8 Allergy status to other drugs, medicaments and biological substances; W18.30XA Fall on same level, unspecified, initial encounter; Y93.89 Activity, other specified; Y92.89 Other specified places as the place of occurrence of the external cause; Y99.8 Other external cause status
CPT/HCPCS: 29125; 73080; 73110; 99284; A4565; A6258; A6446

== ENCOUNTER 2024-05-23 10:41 | Day surgery (SDC) | payer BC, MEDICARE ==
[2024-05-20 12:40] LABS: BASOPHILS # (AUTO) 0.1 X10'3 (0-0.2); EOSINOPHILS # (AUTO) 0.4 X10'3 (0-0.9); EOSINOPHILS % (AUTO) 3.5 % (0-6); LYMPHOCYTES # (AUTO) 2.1 X10'3 (1.1-4.8); LYMPHOCYTES % (AUTO) 20.4 % (21-51); MEAN CORPUSCULAR HEMOGLOBIN 30.7 PG (27.0-31.0); MEAN CORPUSCULAR HGB CONC 32.7 g/dL (33.0-36.5); MEAN CORPUSCULAR VOLUME 93.9 FL (78-98); MEAN PLATELET VOLUME 9.3 FL (7.4-10.4); MONOCYTES # (AUTO) 0.9 X10'3 (0-0.9); MONOCYTES % (AUTO) 8.5 % (2-12); NEUTROPHILS % (AUTO) 66.6 % (42-75); PRE OP HEMATOCRIT 41.5 % (35.0-45.0); PRE OP HEMOGLOBIN 13.6 g/dL (12.0-16.0); PRE OP PLATELET COUNT 210 X10'3 (140-440); PRE OP WHITE BLOOD COUNT 10.5 10'3 (4.8-10.8); RED BLOOD COUNT 4.42 X10'6 (4.20-5.60); RED CELL DISTRIBUTION WIDTH 14.7 % (11.5-14.5)
[2024-05-20 12:50] LABS: ALBUMIN 3.4 G/DL (3.4-5.0); ALBUMIN/GLOBULIN RATIO 0.9 (1.1-1.5); ALKALINE PHOSPHATASE 74 IU/L (46-116); BLOOD UREA NITROGEN 25 MG/DL (7-18); BUN/CREATININE RATIO 35.7 (10.0-20.0); CALCIUM 9.6 MG/DL (8.5-10.1); CHLORIDE 101 MMOL/L (99-107); PRE OP ALT 36 U/L (30-65); PRE OP ANION GAP 10 (8-16); PRE OP AST 20 U/L (10-37); PRE OP BILIRUB, TOTAL 0.4 MG/DL (0.0-1.0); PRE OP GLUCOSE 103 MG/DL (70-104); PRE OP POTASSIUM 4.4 MMOL/L (3.4-5.1); PRE OP SODIUM 137 MMOL/L (135-145); TOTAL CARBON DIOXIDE 26.5 MMOL/L (24-32); TOTAL PROTEIN 7.3 G/DL (6.4-8.2); eGFR 84 ML/MIN
[2024-05-23] VITALS (9 sets, daily range): BP systolic 123–145; BP diastolic 49–90; PULSE 43–62; RESP 12–16; TEMP 97.4; O2SAT 97–100
[~2024-05-23] VITALS: Ht 157.5 cm; Wt 119.2 kg
[2024-05-23] MEDS: DOCUMENT DATE & TIME OF BETA-BLOCKER PO ONE (06:30)
[~2024-05-23 10:41] MED LIST changes: +ALBU8HFA PO; +ALEN70TA80 PO; +clindamycin-Cleocin 900mg/D5W 50 ML IV ONE
[2024-05-23] MEDS ORDERED: proCHLORperazine 10 MG/2 ml inj IV PRN (11:15)
[2024-05-23] MEDS ORDERED: morphine 2 MG/ML inj. syringe IV PRN (11:15)
[2024-05-23] MEDS ORDERED: ondansetron/PF 4mg/2ml inj IV PRN (11:15)
[2024-05-23] MEDS ORDERED: morphine 4 MG/ML inj SYRINge IV PRN (11:15)
[2024-05-23] MEDS ORDERED: meperidine/PF 25mg/ml syringe IV PRN ×2 (11:15)
[2024-05-23] MEDS ORDERED: ringers solution, lacted 1,000 ML IV SCH (11:15)
[2024-05-23] MEDS: famotidine 20mg tablet PO ONE (11:54)
[2024-05-23] MEDS: ringers solution, lacted 1,000 ML IV SCH (11:55)
[2024-05-23] MEDS ORDERED: cloNIDine hcl/PF 100mcg/ml inj ONE (12:04)
[2024-05-23] MEDS ORDERED: sevoflurane 250ml liquid IH ONE (12:16)
[2024-05-23] MEDS ORDERED: fentaNYL/PF 50MCG/1 ML 2ML syringe ONE (12:20)
[2024-05-23] MEDS ORDERED: BUPIVAcaine/PF 2.5mg/ml (0.25%) 10ml vial ONE (12:21)
[2024-05-23] MEDS ORDERED: midazolam 1 mg/ML 2ml injection ONE (12:55)
[2024-05-23] MEDS ORDERED: ROPIVAcaine 0.5% (5mg/ml) 30ml vial ONE (12:56)
[2024-05-23] MEDS ORDERED: propofol inj 20 ML IV ONE (12:56)
[2024-05-23] MEDS ORDERED: LIDOcaine 2% (20mg/ml) 5ml vial ONE (12:56)
[2024-05-23] MEDS ORDERED: dexamethasone sod phosphate 4mg/ml inj. ONE (12:56)
[2024-05-23] MEDS ORDERED: ondansetron/PF 4mg/2ml inj ONE (12:56)
[2024-05-23] MEDS: acetaminophen 1,000mg/100ml IV 100 ML IV ONE (14:52)
== END 2024-05-23 15:15 | disposition home or self-care (01) ==
LOC: PRE-OP 10:41 → PAS 15:15
PROVIDERS: ATTEND Orthopaedic Surgery Hand Surgery
DX: S52.501A Unspecified fracture of the lower end of right radius, initial encounter for closed fracture (principal); G89.18 Other acute postprocedural pain; I10 Essential (primary) hypertension; E11.9 Type 2 diabetes mellitus without complications; E66.9 Obesity, unspecified; K21.9 Gastro-esophageal reflux disease without esophagitis; I48.91 Unspecified atrial fibrillation; J45.909 Unspecified asthma, uncomplicated; Z86.718 Personal history of other venous thrombosis and embolism; Z79.01 Long term (current) use of anticoagulants; Z98.891 History of uterine scar from previous surgery; Z98.890 Other specified postprocedural states; Z68.42 Body mass index [BMI] 45.0-49.9, adult; Z88.0 Allergy status to penicillin; Z88.8 Allergy status to other drugs, medicaments and biological substances; X58.XXXA Exposure to other specified factors, initial encounter; Y93.89 Activity, other specified; Y92.89 Other specified places as the place of occurrence of the external cause; Y99.8 Other external cause status
CPT/HCPCS: 25609; 36415; 64417; 80053; 82948; 85025; A6222; C1713; J0131; J0735; J1100; J2250; J2405; J2704; J2795; J3010; J3490; J7030; J7120; Z7506; Z7508; Z7512; A4215; A4565; A4618; A6449; A7000